=== PATIENT | male | born 1970 | race Caucasian/White ===

== ENCOUNTER 2019-06-05 01:30 | Emergency (ER) | payer OTHER ==
[~2019-06-05] VITALS: Ht 182.9 cm; Wt 76.0 kg
[2019-06-05 01:34] VITALS: BP 113/74
[2019-06-05] MEDS ORDERED: LIDOcaine 1% W/epiNEPHrine 1:200,000 10ml vial IJ STA (01:41)
[2019-06-05] MEDS ORDERED: TETanus/Pertussis (Acell)/Diphther VAC/PF (Tdap-Adult) 0.5ml syringe IMVAC ONE (02:10)
[2019-06-05] MEDS ORDERED: cephalexin 250mg capsule PO ONE (02:10)
[2019-06-05] MEDS ORDERED: CEPH500C5 PO (02:11)
== END 2019-06-05 02:42 | disposition home or self-care (01) ==
LOC: ER 01:31
DX: S60.452A Superficial foreign body of right middle finger, initial encounter (principal); Z88.2 Allergy status to sulfonamides; Z88.0 Allergy status to penicillin; Z79.2 Long term (current) use of antibiotics; W22.8XXA Striking against or struck by other objects, initial encounter; Y93.89 Activity, other specified; Y92.89 Other specified places as the place of occurrence of the external cause; Y99.8 Other external cause status
CPT/HCPCS: 10120; 90471; 99284

== ENCOUNTER 2019-08-14 14:48 | Emergency (ER) | payer MEDICAID, OTHER ==
[~2019-08-14] VITALS: Ht 182.9 cm; Wt 86.4 kg
[~2019-08-14 14:48] MED LIST: CEPH500C5 PO
[2019-08-14 15:08] VITALS: BP 123/70
== END 2019-08-14 16:44 | disposition home or self-care (01) ==
LOC: ER 14:49
DX: S61.213A Laceration without foreign body of left middle finger without damage to nail, initial encounter (principal); Z88.2 Allergy status to sulfonamides; Z88.0 Allergy status to penicillin; Z79.2 Long term (current) use of antibiotics; W45.8XXA Other foreign body or object entering through skin, initial encounter; Y93.89 Activity, other specified; Y92.098 Other place in other non-institutional residence as the place of occurrence of the external cause; Y99.8 Other external cause status
CPT/HCPCS: 99283